=== PATIENT | male | born 1985 | race African-American/Black ===

== ENCOUNTER 2020-12-30 17:16 | Emergency (ER) | payer MEDICAID ==
[~2020-12-30] VITALS: Ht 185.4 cm; Wt 90.0 kg
[2020-12-30] MEDS ORDERED: ONDANSETRON ODT 4 MG ONE (17:28)
[2020-12-30] MEDS ORDERED: ONDANSETRON ODT 4 MG PO ONE (17:30)
--- NOTE | 2020-12-30 20:03 | NUR ---
Patient presents to ER c/o lethargy and vomiting since 1200. States it was pink tinged and foamy. Patient's symptoms worsened while in the lobby. Denies drug or alcohol use today. States he drank "a lot" of alcohol throughout the day yesterday. Patient is lethargic. Respirations even and unlabored. Family at bedside.
[2020-12-30] MEDS ORDERED: LACTATED RINGERS 1,000 ML IV ONE (20:30)
[2020-12-30] MEDS ORDERED: SODIUM CHLORIDE FLUSH 10ML SYR IVF ONE (20:30)
[2020-12-30] MEDS ORDERED: SODIUM CHLORIDE 0.9% 1,000ML IVBOLUS ONE (20:30)
[2020-12-30] MEDS ORDERED: ONDANSETRON 2MG/ML, 2ML IVPush ONE ×2 (20:30→23:30)
[2020-12-30 20:36] LABS: BASOPHILS % (AUTO) 1 % (0-1); EOSINOPHILS % (AUTO) 0 % (1-7); LYMPHOCYTES % (AUTO) 30 % (22-44); MD NO; MEAN CORPUSCULAR HEMOGLOBIN 33.7 pg (27.5-34.5); MEAN CORPUSCULAR HGB CONC 35.1 g/dL (33.2-36.2); MEAN PLATELET VOLUME 7.9 fL (7.4-10.4); MONOCYTES % (AUTO) 4 % (2-9); NEUTROPHILS % (AUTO) 65 % (42-75); PLATELET COUNT 281 x10^3/uL (130-400); RED BLOOD COUNT 4.57 x10^6/uL (4.38-5.82)
[2020-12-30 20:41] LABS: ALBUMIN 3.8 g/dL (3.4-5.0); ANION GAP 8 mmol/L (5-15); CALCIUM 8.1 mg/dL (8.5-10.1); CHLORIDE 109 mmol/L (98-107)
[2020-12-30] MEDS ORDERED: ONDANSETRON 2MG/ML, 2ML ONE ×2 (20:41→23:41)
[2020-12-30] MEDS ORDERED: LORazepam 2 MG/ML, 1ML ONE ×2 (20:41→23:42)
[2020-12-30 20:45] LABS: ALANINE AMINOTRANSFERASE 38 U/L (12-78); ALKALINE PHOSPHATASE 96 U/L (45-117); BILIRUBIN,TOTAL 0.3 mg/dL (0.2-1.0); CREATININE 1.02 mg/dL (0.7-1.3); TOTAL PROTEIN 8.4 g/dL (6.4-8.2)
[2020-12-30] MEDS ORDERED: LORazepam 2 MG/ML, 1ML IVPush ONE (21:00)
--- NOTE | 2020-12-30 23:18 | NUR ---
WENT IN TO D/C PT AND THEY HAVE CONCERN PT STILL DOES NOT FEEL WELL AND ARE ASKING TO SPEAK TO MD. MARCIAL. CALL LIGHT W/IN REACH. MD SOTO
--- NOTE | 2020-12-30 23:20 | NUR ---
Report given to ABELINO Morocho. Patient care transferred.
[2020-12-30] MEDS ORDERED: LORazepam 2 MG/ML, 1ML IV ONE (23:30)
--- NOTE | 2020-12-30 23:40 | NUR ---
MD PLAN IS TO MEDICATE PT AND ALLOW THEM ADDITIONAL TIME TO REST.
--- NOTE | 2020-12-30 23:55 | NUR ---
UPON ENTERING ROOM, GF AND PT ARE SLEEPING IN [facility]. TALKING W/ GF SHE STATES THAT THEY ARE ON THE ROAD CURRENTLY AND PT IS UNABLE TO TRULY REST. MEDICATED PER MAR. INFORMED PT THEY CAN SLEEP FOR A SHORT WHILE AND THEN THE PT WILL BE DC'D.
--- NOTE | 2020-12-31 00:34 | NUR ---
BEDSIDE. POC IS MTF.
--- NOTE | 2020-12-31 00:51 | NUR ---
PT IS SLEEPING IN [facility], BEDSIDE. CALL LIGHT W/IN REACH. ANIKET. CLARISAS.
--- NOTE | 2020-12-31 01:37 | NUR ---
Pt sleeping on [facility] [place]. gf bedside, call light w/in reach.
--- NOTE | 2020-12-31 02:07 | NUR ---
PT IS SLEEPING IN [facility], BEDSIDE. CALL LIGHT W/IN REACH. ANIKET. CLARISAS.
--- NOTE | 2020-12-31 03:01 | NUR ---
PT IS SLEEPING IN [facility], BEDSIDE. CALL LIGHT W/IN REACH. ANIKET. CLARISAS
[2020-12-31 03:02] VITALS: BP 127/77
--- NOTE | 2020-12-31 03:56 | NUR ---
PT IS SLEEPING IN [facility], BEDSIDE. CALL LIGHT W/IN REACH. ANIKET.
--- NOTE | 2020-12-31 05:28 | NUR ---
Erica rodriguez in [facility] - 12/31/20 at 0528 by DEBBY Patient given discharge instructions and they have confirmed that they understand the instructions. Patient ambulatory with steady gait.
--- NOTE | 2020-12-31 05:30 | NUR ---
Patient given discharge instructions and they have confirmed that they understand the instructions. Patient ambulatory with steady gait.
== END 2020-12-31 05:31 | disposition home or self-care (01) ==
LOC: ED 12-31 05:00
DX: E86.0 Dehydration (principal); R11.2 Nausea with vomiting, unspecified; R00.0 Tachycardia, unspecified; F10.129 Alcohol abuse with intoxication, unspecified; Y90.0 Blood alcohol level of less than 20 mg/100 ml
CPT/HCPCS: 80053; 80320; 82962; 83690; 83735; 85025; 93005; 96361; 96374; 96375; 96376; 99285; J2060; J2405; J7030; J7120; Q0162; G0480